=== PATIENT | female | born 1950 | race Caucasian/White ===

== ENCOUNTER 2017-01-11 21:37 | Emergency (ER) | payer OTHER ==
[~2017-01-11] VITALS: Ht 157.5 cm; Wt 90.7 kg
[~2017-01-11 21:37] MED LIST: AMOXICILLIN500 MG PO; HYDROCHLOROTHIA25 MG PO; LISINOPRIL-HCT1 EAC1 PO; METFORMIN HCL500 MG PO; PRAVASTATIN SOD20 MG PO; SF 5000 PLUS51 GM DT
[2017-01-11] MEDS ORDERED: AZITHROMYCIN250 MG PO (21:50)
[2017-01-11] MEDS ORDERED: LIPITOR40 MG PO (21:51)
[2017-01-11] MEDS ORDERED: CARVEDILOL25 MG PO (21:52)
[2017-01-11] MEDS ORDERED: SUDAFED 12-HOU120 MG PO (22:35)
[2017-01-11] MEDS ORDERED: AUGMENTIN 875-1 EACH PO (22:35)
== END 2017-01-11 22:48 | disposition home or self-care (01) ==
LOC: ED 21:37
DX: J01.90 Acute sinusitis, unspecified (principal); I10 Essential (primary) hypertension; E11.9 Type 2 diabetes mellitus without complications; E78.00 Pure hypercholesterolemia, unspecified; Z87.891 Personal history of nicotine dependence; Z88.8 Allergy status to other drugs, medicaments and biological substances; Z79.84 Long term (current) use of oral hypoglycemic drugs; Z79.2 Long term (current) use of antibiotics; Z79.899 Other long term (current) drug therapy
CPT/HCPCS: 99283

== ENCOUNTER 2020-07-09 08:45 | Day surgery (SDC) | payer MEDICARE ==
[~2020-07-09] VITALS: Ht 157.5 cm; Wt 96.0 kg
[~2020-07-09 08:45] MED LIST changes: +AUGMENTIN 875-1 EACH PO; +AZITHROMYCIN250 MG PO; +CARVEDILOL25 MG PO; +LIPITOR40 MG PO; +SUDAFED 12-HOU120 MG PO
--- NOTE | 2020-07-09 10:45 | NUR ---
07/09/20 1045 Sadia Ortiz 1042 PATIENT ARRIVES TO PACU AWAKE. DENIES PAIN OR NAUSEA. RESP EVEN AND UNLABORED, ROOM AIR SATS >92%.
--- NOTE | 2020-07-10 20:06 | OR ---
[facility] [address] [place], [place] [address] Signed DATE OF OPERATION: 07/09/2020 SURGEON: Kady Spencer MD PREOPERATIVE DIAGNOSES: 1. Positive FIT test (hemoccult-positive human specific test). 2. No prior history of colonoscopy. POSTOPERATIVE DIAGNOSIS: Polyps x3. PROCEDURES: Total colonoscopy to cecum with cold morcellation polypectomy x2 and cold snare polypectomy x1. ANESTHESIA: Intravenous sedation, fentanyl 100 mcg, and Versed 7 mg. INDICATION: This 69-year-old white woman is a patient Dr. Lala and underwent FIT testing, which was found to be positive. She has had no gross blood per rectum or other bleeding episodes in the past. She is admitted at this time to undergo colonoscopy. Notably, she has never had colonoscopy in the past. She has no family history of colon cancer and no symptoms otherwise. FINDINGS: The prep was adequate. Colonoscopy was undertaken to the cecum. She did have several diverticula of the sigmoid and she had an adenomatous polyp of the rectum and 2 small adenomatous polyps of the right side including superior cecum and proximal right colon. All were excised completely. DESCRIPTION OF PROCEDURE: The patient was brought to the endoscopy suite and placed in lateral decubitus position, given intravenous sedation to the point of slurred speech and nystagmus. Digital rectal examination was normal. Olympus video colonoscope was passed per rectum and manipulated throughout the colon. Just proximal to the cecum was a small sessile polyp. This was excised with cold morcellation technique. The scope was then advanced to the cecum. Irrigation was undertaken and another small polyp was noted in the distal cecum. This was excised with Electronically Signed By: KADY SPENCER MD 07/10/202005 PATIENT NAME: GRISELDA AMARAL OPERATIVE REPORT DATE OF : 54 REPORT #: [id number] PHYSICIAN: KADY SPENCER MD PCP: LEESA LALA MD REPORT IS CONFIDENTIAL AND NOT TO BE RELEASED WITHOUT AUTHORIZATION [facility] [address] [place] [id number] Signed cold morcellation technique as well. The scope was then withdrawn and examination throughout showed no sign of abnormality other than diverticular change of the sigmoid until retroflexed view of the rectum demonstrated an adenomatous appearing polyp. This was excised with cold snare polypectomy technique. The scope was withdrawn and removed and the patient was taken to recovery room in good condition. CONCLUDING DIAGNOSIS: Polyps x3. PLAN: Recommend repeat colonoscopy in 5 years sooner if symptoms should occur. She will return to the ongoing care of Dr. Lala. MD LATRICIA Alejandro/NANOL /[id number] cc: Leesa Lala MD Copies: ~ Electronically Signed By: KADY SPENCER MD 07/10/202005 PATIENT NAME: GRISELDA AMARAL OPERATIVE REPORT DATE OF : 54 REPORT #: [id number] PHYSICIAN: KADY SPENCER MD PCP: LEESA LALA MD REPORT IS CONFIDENTIAL AND NOT TO BE RELEASED WITHOUT AUTHORIZATION
--- NOTE | 2020-07-12 15:15 | PATH ---
[facility] [address] [place], [place] [address] Signed SPECIMEN(S): A ASCENDING POLYP SPECIMEN(S): B CECAL POLYP SPECIMEN(S): C RECTAL POLYP SPECIMEN SOURCE: A. ASCENDING POLYP B. CECAL POLYP C. RECTAL POLYP CLINICAL HISTORY: Screening colonoscopy with poss. biopsies. Post: Colon polyps x 3. MICROSCOPIC DESCRIPTION: Histologic sections of all submitted blocks are examined by light microscopy. These findings, together with the gross examination, support the pathologic diagnosis. FINAL PATHOLOGIC DIAGNOSIS: A. Ascending polyp: - Tubular adenoma (one fragment). B. Cecal polyp: - Tubular adenoma (one fragment). C. Rectal polyp: - Polypoid colonic mucosa with focal hypeplastic features (two fragments) JVR:[facility]:C2NR GROSS DESCRIPTION: Three specimens are received in three containers, labeled "RC." A. The specimen, labeled "RC, 1," and designated on the requisition "ascending polyp," is received in formalin and consists of one reardon soft tissue polypoid fragment that measures 0.3 cm in greatest dimension. The specimen is entirely submitted in cassette (A1). B. The specimen, labeled "RC, 2," and designated on the requisition "cecal polyp," is received in formalin and consists of one reardon soft tissue polypoid fragment that measures 0.5 cm in greatest dimension. The specimen is entirely submitted in cassette (B1). C. The specimen, labeled "RC, 3," and designated on the requisition "rectal polyp," is received in formalin and consists of two reardon soft tissue polypoid fragments that measure 0.3 cm in greatest dimension. The specimen is entirely submitted in cassette (C1). AT (under the direct supervision of a pathologist) PATIENT NAME: GRISELDA AMARAL PATHOLOGY DATE OF : 54 REPORT #: [id number] PHYSICIAN: [facility] PCP: ENEDELIA ROBERTS MD REPORT IS CONFIDENTIAL AND NOT TO BE RELEASED WITHOUT AUTHORIZATION [facility] [address] [place], [place] [address], [place] [address] Signed The Gross Description was prepared using a voice recognition system. The report was reviewed for accuracy; however, sound-alike word errors, addition and/or deletions may occur. If there is any question about this report, please contact Client Services. PERFORMING LABORATORY: The technical component was performed by [employer], [address] [place] [id number] (Speech Language Pathologist Assistant: Jeanette Reynolds MD; CLIA# [id number]). Professional interpretation was performed by [employer] [address]. Diagnostician: Jonny Case MD Pathologist Electronically Signed 07/12/2020 Copies: ~ PATIENT NAME: GRISELDA AMARAL PATHOLOGY DATE OF : 54 REPORT #: [id number] PHYSICIAN: [facility] PCP: ENEDELIA ROBERTS MD REPORT IS CONFIDENTIAL AND NOT TO BE RELEASED WITHOUT AUTHORIZATION
== END 2020-07-09 11:15 | disposition home or self-care (01) ==
LOC: OPS 08:45 → DS 08:50 → OPS 10:00 → DS 10:30 → OPS 11:15
PROVIDERS: ATTEND Surgery
PROC: 0DBH8ZZ Excision of Cecum, Via Natural or Artificial Opening Endoscopic (ICD-10-PCS; 2020-07-09)
PROC: 0DBH8ZZ Excision of Cecum, Via Natural or Artificial Opening Endoscopic (ICD-10-PCS; principal; 2020-07-09 10:00)
DX: Z12.11 Encounter for screening for malignant neoplasm of colon (principal); D12.2 Benign neoplasm of ascending colon; D12.0 Benign neoplasm of cecum; D12.8 Benign neoplasm of rectum; K57.30 Diverticulosis of large intestine without perforation or abscess without bleeding
CPT/HCPCS: 99153; G0500; J2250; J3010; J7121

== ENCOUNTER 2022-01-24 07:51 | Day surgery (SDC) | payer MEDICARE ==
[~2022-01-24] VITALS: Ht 157.5 cm; Wt 90.9 kg
[~2022-01-24 07:51] MED LIST changes: +D3 + K2 DOTS 11 EACH PO; +FENOFIBRATE160 MG PO
--- NOTE | 2022-01-24 12:44 | OR ---
[facility] [address] [facility] [place], [place] [address] Signed DATE OF OPERATION: 01/24/2022 SURGEON: Petr Canela MD LOCATION: [facility] [place] [facility] Outpatient Surgery PREOPERATIVE DIAGNOSIS: Left ear eustachian tube dysfunction. POSTOPERATIVE DIAGNOSIS: Left ear eustachian tube dysfunction. PROCEDURE: Left myringotomy and ventilation tube insertion. ANESTHESIA: General LMA, Robert DOSHI. HISTORY: Griselda is a 71-year-old lady with several months of left ear plugging, pressure problems, popping, discomfort. Exam in the office had shown essentially clear eardrums. within normal limits. She is taken to the operating room for the above-mentioned procedures. OPERATIVE PROCEDURE AND FINDINGS: After informed consent, the patient was taken to the operating room, placed in the supine position where general LMA anesthesia was induced. The patient and procedure were verified. The patient was repositioned. Left ear was examined with the operating microscope. The eardrum was clear. No middle ear effusion. Anterior inferior radial myringotomy was made. No middle ear effusion. Loyola tube placed. Cipro ophthalmic drops applied to the ear canal, cotton ball to the meatus. The patient tolerated the procedure well, was awakened, extubated, transported to recovery room in good condition. No complications. BLOOD LOSS: Minimal. SPECIMEN: No specimen Electronically Signed By: PETR CANELA MD 01/24/22 1244 PATIENT NAME: GRISELDA AMARAL OPERATIVE REPORT DATE OF : 54 REPORT #: [id number] PHYSICIAN: PETR CANELA MD PCP: ENEDELIA ROBERTS MD REPORT IS CONFIDENTIAL AND NOT TO BE RELEASED WITHOUT AUTHORIZATION [address] [place], [place] [address] Signed DRAINS: No drains Petr Canela MD /MODL /[id number] Copies: ~ Electronically Signed By: PETR CANELA MD 01/24/22 1244 PATIENT NAME: GRISELDA AMARAL OPERATIVE REPORT DATE OF : 54 REPORT #: [id number] PHYSICIAN: PETR CANELA MD PCP: ENEDELIA ROBERTS MD REPORT IS CONFIDENTIAL AND NOT TO BE RELEASED WITHOUT AUTHORIZATION
== END 2022-01-24 11:15 | disposition home or self-care (01) ==
LOC: OPS 07:51 → DS 07:51 → OPS 09:30 → DS 09:30 → OPS 11:15
PROVIDERS: ATTEND Otolaryngology
PROC: 099670Z Drainage of Left Middle Ear with Drainage Device, Via Natural or Artificial Opening (ICD-10-PCS; principal; 2022-01-24 09:30)
DX: H69.92 Unspecified Eustachian tube disorder, left ear (principal); H91.92 Unspecified hearing loss, left ear; Z20.822 Contact with and (suspected) exposure to COVID-19
CPT/HCPCS: 00126; J1100; J1885; J2250; J2405; J2704; J2765; J3010; J7121

== ENCOUNTER 2023-04-22 08:28 | Emergency (ER) | payer MEDICARE ==
[~2023-04-22] VITALS: Ht 157.5 cm; Wt 86.2 kg
[2023-04-22] MEDS ORDERED: JARDIANCE10 MG PO (08:46)
[2023-04-22] MEDS ORDERED: FENOFIBRATE160 MG PO (08:47)
[2023-04-22] MEDS ORDERED: B12 ACTIVE1000 MCG PO (08:47)
[2023-04-22] MEDS ORDERED: ST. JOSEPH ASPI81 MG PO (08:48)
[2023-04-22] MEDS ORDERED: NORVASC5 MG PO (09:16)
[2023-04-22] MEDS ORDERED: HYDROCHLOROTHIA25 MG PO (09:16)
[2023-04-22 09:57] VITALS: BP 119/55
== END 2023-04-22 09:58 | disposition home or self-care (01) ==
LOC: ED 08:28
DX: T78.3XXA Angioneurotic edema, initial encounter (principal); T46.4X5A Adverse effect of angiotensin-converting-enzyme inhibitors, initial encounter; I10 Essential (primary) hypertension; E11.9 Type 2 diabetes mellitus without complications; E78.00 Pure hypercholesterolemia, unspecified; Z87.891 Personal history of nicotine dependence; Z88.8 Allergy status to other drugs, medicaments and biological substances; Z79.84 Long term (current) use of oral hypoglycemic drugs; Z79.82 Long term (current) use of aspirin; Z79.899 Other long term (current) drug therapy
CPT/HCPCS: 99283; J8540

== ENCOUNTER 2024-09-18 19:07 | Inpatient (IN) | payer MEDICARE, OTHER ==
[~2024-09-18] VITALS: Ht 157.5 cm; Wt 93.8 kg
[~2024-09-18 19:07] MED LIST changes: +B12 ACTIVE1000 MCG PO; +JARDIANCE10 MG PO; +NORVASC5 MG PO; +ST. JOSEPH ASPI81 MG PO
[2024-09-18] MEDS ORDERED: JARDIANCE25 MG PO (19:28)
[2024-09-18 20:29] LABS: BASOPHILS 1.1 % (0-2); EOSINOPHILS 4.8 % (0-6); HEMATOCRIT 23.4 % (35.0-50.0); HEMOGLOBIN 7.7 g/dL (12.0-18.0); LYMPHOCYTES 17.7 % (24-44); MCH 30.8 (27-36); MCV 93.3 fl (81-99); NEUTROPHILS 66.4 % (39-80); PLATELET COUNT 488 K/uL (140-440); RBC 2.51 M/ul (4.3-5.7); RDW 14.5 (10.5-15.0)
[2024-09-18 20:42] LABS: BILIRUBIN, URINE NEGATIVE (negative); BLOOD/HGB, URINE NEGATIVE (Negative); KETONE, URINE NEGATIVE (Negative); LEUK ESTERASE, URINE TRACE (negative); NITRITE, URINE NEGATIVE (negative)
[2024-09-18 20:46] LABS: EPITHELIAL CELLS, URINE SQUAMOUS 1+ /lpf (0-1+); RED BLOOD CELLS, URINE 0-1 /hpf (0-5)
[2024-09-18 20:47] LABS: BACTERIA, URINE RARE /hpf (negative); CASTS, URINE NONE SEEN \\lpf; COLLECTION TYPE, URINE CLEAN CATCH; CRYSTALS, URINE NONE SEEN (0-1+); REFLEX CULTURE, URINE Yes (No); WHITE BLOOD CELLS, URINE 21-40 /HPF (0-5)
[2024-09-18 20:55] LABS: ALBUMIN 3.1 g/dL (3.4-5.0); ALBUMIN/GLOBULIN RATIO 0.91 (1.1-2.4); ANION GAP 11.5 (7-21); BILIRUBIN, TOTAL 0.3 mg/dL (0.2-1.0); BUN/CREATININE RATIO 27.84 (6.0-28.6); CALCIUM 8.5 mg/dL (8.5-10.1); CREATININE, SERUM 0.79 mg/dL (0.55-1.02); MAGNESIUM 1.6 mg/dL (1.8-2.4); POTASSIUM 4.5 mmol/L (3.5-5.1); PROTEIN, TOTAL 6.5 g/dL (6.4-8.2); TSH, 3RD GENERATION 1.354 uIU/mL (0.358-3.740)
[2024-09-18] MEDS ORDERED: MAGNESIUM OXIDE 400 MG TABLET PO ONE (21:15)
[2024-09-18] MEDS ORDERED: PANTOPRAZOLE SODIUM 40 MG/10 ML VIAL IV ONE (21:30)
[2024-09-18 21:58] VITALS: BP 137/61
[2024-09-18 22:00] VITALS: BP 139/58
--- NOTE | 2024-09-18 22:00 | NUR ---
PATIENT ARRIVED TO THE UNIT VIA STRETCHER. PATIENT ABLE TO TRANSFER WITH MINIMAL ASSIST TO THE BED. PATIENT DENIED FEELING SOB WITH THIS ACTIVITY. VS STABLE. TOLERATING ROOM AIR. LUNG SOUNDS CLEAR. ABD SOFT AND NONTENDER. BOWEL SOUNDS ACTIVE. IV SITE WNL; FLUSHED EASILY. SKIN GROSSLY INTACT. 1+ EDEMA NOTED IN JENNIFER LOWER EXTREMITIES. PATIENT IS AAOX4. DENIED PAIN OR GI UPSET. DISCUSSED PLAN OF CARE AND ORIENTED TO ROOM.
[2024-09-18] MEDS ORDERED: CALCIUM + D3 E1 EACH PO (22:03)
[2024-09-18] MEDS ORDERED: CLOPIDOGREL75 MG PO (22:03)
[2024-09-18 22:06] LABS: ABO O; RH POSITIVE
[2024-09-18 22:16] LABS: ABO O; ANTIBODY SCREEN NEGATIVE; RH POSITIVE
[2024-09-18 22:17] LABS: IS CROSSMATCH COMPATIBLE
--- NOTE | 2024-09-18 22:30 | NUR ---
VERIFIED BLOOD PRODUCT ADMINISTERATION ORDERS WITH . PLAN FOR 1 UNIT INFUSION; RECHECK LABS AT 0200. NPO AFTER MIDNIGHT AND IV FLUIDS AT THAT TIME. SEE ORDERS.
[2024-09-18 23:00] VITALS: BP 134/59
[2024-09-18] MEDS ORDERED: MELATONIN 3 MG TAB PO ONE (23:00)
--- NOTE | 2024-09-18 23:00 | NUR ---
FIRST UNIT PRBC STARTED; REVIEWED REACTION SIGNS AND SYMPTOMS WITH PATIENT. VS STABLE. NO REACTIONS AFTER FIRST 15 MINS. CONTINUED INFUSION AT 150 ML/HR. PATIENT PROVIDED WATER AT THIS TIME AND MELATONIN PER REQUEST. CALL LIGHT IN REACH. PATIENT AGREES TO CALL FOR ANY NEEDS, INCLUDING GETTING OUT OF BED.
[2024-09-19] VITALS (8 sets, daily range): BP systolic 114–153; BP diastolic 53–74
[2024-09-19] MEDS ORDERED: LACTATED RINGER'S 1,000 ML IV SCH
--- NOTE | 2024-09-19 00:43 | NUR ---
PATIENT UP TO THE BSC TO VOID. PATIENT TOLERATES WELL. DENIED FEELING SOB. PATIENT DOES REPORT DIFFICULTY SLEEPING, STATES "THIS IS HOW I AM WHEN I'M IN THE HOSPITAL". DENIED CONCERNS. IV SITE WNL; PRBC INFUSING PER ORDER. VS STABLE. CALL LIGHT IN REACH.
--- NOTE | 2024-09-19 02:00 | NUR ---
LAB IN FOR REPEAT CBC. BLOOD PRODUCTS FINISHED 129. VS STABLE. NO SIGNS OF REACTION. IV FLUIDS STARTED PER ORDER. IV SITE WNL.
[2024-09-19 02:14] LABS: BASOPHILS 1.3 % (0-2); EOSINOPHILS 5.9 % (0-6); HEMATOCRIT 25.5 % (35.0-50.0); HEMOGLOBIN 8.7 g/dL (12.0-18.0); LYMPHOCYTES 19.4 % (24-44); MCH 31.1 (27-36); MCHC 34.1 g/dl (30-36); MCV 91.2 fl (81-99); MONOCYTES 10.3 % (0-12); NEUTROPHILS 63.1 % (39-80); PLATELET COUNT 436 K/uL (140-440); RBC 2.79 M/ul (4.3-5.7); RDW 14.4 (10.5-15.0)
--- NOTE | 2024-09-19 03:12 | NUR ---
UPDATED ON PATIENT REPEAT LABS AND CURRENT VS.
--- NOTE | 2024-09-19 05:00 | NUR ---
PATIENT RESTING IN BED. DENIES ANY NEEDS OR CONCERNS. VS STABLE. IV FLUIDS PER ORDER. SITE WNL. PATIENT DENIED PAIN, SOB, OR GI UPSET. CALL LIGHT IN REACH.
[2024-09-19 06:06] LABS: BASOPHILS 1.1 % (0-2); EOSINOPHILS 6.4 % (0-6); HEMATOCRIT 26.6 % (35.0-50.0); HEMOGLOBIN 8.9 g/dL (12.0-18.0); LYMPHOCYTES 19.1 % (24-44); MCH 30.8 (27-36); MCHC 33.6 g/dl (30-36); MCV 91.5 fl (81-99); NEUTROPHILS 63.4 % (39-80); PLATELET COUNT 450 K/uL (140-440); RBC 2.91 M/ul (4.3-5.7)
--- NOTE | 2024-09-19 06:08 | NUR ---
LAB IN FOR MORNING DRAW. PATIENT PROVIDED TV REMOTE. NO OTHER NEEDS AT THIS TIME. CALL LIGHT IN REACH. IV SITE WNL.
[2024-09-19 06:21] LABS: ALBUMIN 3.1 g/dL (3.4-5.0); ANION GAP 12.8 (7-21); BILIRUBIN, TOTAL 0.7 mg/dL (0.2-1.0); BUN/CREATININE RATIO 22.22 (6.0-28.6); CALCIUM 8.6 mg/dL (8.5-10.1); CREATININE, SERUM 0.81 mg/dL (0.55-1.02); MAGNESIUM 1.7 mg/dL (1.8-2.4); POTASSIUM 3.8 mmol/L (3.5-5.1); PROTEIN, TOTAL 6.2 g/dL (6.4-8.2)
--- NOTE | 2024-09-19 08:00 | NUR ---
PT USES CALL LIGHT TO REQUEST ASSISTANCE UP TO BSC. PT STEADY ON FEET, AWARE OF LINES/CORDS. PT PREFORMS OWN RENEE CARE POST VOID. MEDIUM SIZED FORMED STOOL NOTED, BROWN. PT REPORTS SOME DIZZINESS WITH STANDING POST VOID, RESOLVES UPON REST IN BED. REPORTS "SLIGHT" HEADACHE. VS STABLE. CALL LIGHT IN REACH.
--- NOTE | 2024-09-19 08:27 | EKG ---
[facility] [address] [facility] [place] [address] Signed Normal sinus rhythm Minimal voltage criteria for LVH, may be normal variant ( R in aVL ) Borderline ECG When compared with ECG of 23-JAN-2022 07:32, ST no longer elevated in Lateral leads Confirmed by Tyshawn Hudson MD () on 09/19/2024 8:27:01 AM Electronically Signed By: TYSHAWN HUDSON MD 09/19/24 0827 PATIENT NAME: GRISELDA AMARAL Electrocardiogram DATE OF : 54 PHYSICIAN: TYSHAWN HUDSON MD REPORT #: [id number] REPORT IS CONFIDENTIAL AND NOT TO BE RELEASED WITHOUT AUTHORIZATION
[2024-09-19] MEDS ORDERED: GLUCAGON,HUMAN RECOMBINANT 1 MG/ML VIAL SUB-Q PRN (09:00)
[2024-09-19] MEDS ORDERED: IBLOOD GLUCOSE TEST STRIP 1 EA TEST XX PRN (09:00)
[2024-09-19] MEDS ORDERED: MAGNESIUM SULFATE 2 GM/50 ML BAG IV ONE (09:00)
[2024-09-19] MEDS ORDERED: DEXTROSE 5% 1,000 ML IV PRN (09:00)
[2024-09-19] MEDS ORDERED: DEXTROSE 50% 50 ML SYR IV PRN ×2 (09:00)
[2024-09-19] MEDS ORDERED: ondansetron HCL 4 MG/2 ML VIAL IV PRN (09:00)
[2024-09-19] MEDS ORDERED: PANTOPRAZOLE SODIUM 40 MG/10 ML VIAL IV SCH (09:08)
--- NOTE | 2024-09-19 09:21 | NUR ---
UR CLINICAL REVIEW: 2MN MANPREET, MEETS INPT FOR ANEMIA/GI BLEED SYMPTOMATIC ANEMIA WITH HGB 7.7 REQUIRING TRANSFUSION, LIKELY GI BLEED WITH POSITIVE GUAIAC. MEDICARE INPT 09/19/2024 @ 0858 ORDER MATCHES REG NO AUTH REQUIRED PER MEDICARE RULES PLAN TO DC TO HOME WHEN MEDICALLY STABLE.
--- NOTE | 2024-09-19 09:58 | NUR ---
[facility] NOT AVAILABLE FOR VISIT. PROVIDED PRAYER.
[2024-09-19] MEDS ORDERED: ATORVASTATIN CA80 MG PO (10:10)
--- NOTE | 2024-09-19 10:18 | NUR ---
VISITED DURING SPIRITUAL CARE ROUNDS. PT IN OVERALL GOOD SPIRITS, NO IMMEDIATE NEEDS. BOW MAKER PROVIDED SUPPORTIVE PRESENCE, HOSPITALITY, PRAYER. PT EXPRESSED GRATITUDE.
--- NOTE | 2024-09-19 10:26 | NUR ---
INTO SEE PATIENT. PERSONAL HEALTH INFORMATION REVIEWED. PATIENT LIVES IN AN APARTMENT WITH SISTER. 2 STEPS TO GET INTO. STATES THEY HAVE BEEN A BIT HARDER BECAUSE OF SHORTNESS OF BREATH. DENIES ANY DME. DRIVES. DENIES DIFFCULTY PAYING UTLITIES OR OBATAINING FOOD. NO FUTHER CM NEEDS OR QUESTIONS.
--- NOTE | 2024-09-19 10:33 | NUR ---
MED REC COMPLETE
--- NOTE | 2024-09-19 11:32 | NUR ---
PT ASSITED UP TO BSC TO VOID. REPORTS DIZZINESS WITH STANDING, HR ELEVATED TO 90'S, RESOLVES WITH RETURN TO BED. DENIES SOB. DENIES PAIN IN ABD, ONLY HEADACHE WHICH SHE DENIES NEEDING PAIN MEDICATION FOR RIGHT NOW. ICE AND HEAT PACK OFFERED. IV SITE PATENT. PT IN GOOD SPIRITS WATCHING TV. CALL LIGHT IN REACH.
[2024-09-19] MEDS ORDERED: PHARMACY RENAL DOSE ADJUSTMENT 1 DOSE MISC PO SCH (12:00)
--- NOTE | 2024-09-19 13:09 | NUR ---
PT ASSISTED UP TO CHAIR - RESTLESS AND ANXIOUS TO SEE SURGEON. OTHERWISE PT DENIES NEESD, CALL LIGHT IN REACH.
[2024-09-19] MEDS ORDERED: Insulin Regular, Human 100 UNIT/ML ML SUB-Q SCH (14:00)
[2024-09-19] MEDS ORDERED: IBLOOD GLUCOSE TEST STRIP 1 EA TEST VI SCH (14:00)
--- NOTE | 2024-09-19 14:20 | NUR ---
PT ASSISTED WITH LINE/CORD MANAGMENT BACK TO BED. PM ASSESSEMENT UNCHANGED. PT DENIES ABD TENDERNESS, DENIES FEELING SOB, RR CONSISTENTLY ELEVATED IN 20'S WITH REST AND AMBULATION, PT DOESNT STATE THIS FEELS DIFFERENT FOR HER NORMAL. FINE CRACKLES IN BASES PERSIST. PT AWAITING SURGEON CONSULT FOR FURTHER PLAN.
--- NOTE | 2024-09-19 15:43 | NUR ---
RN IN ROOM TO ROUND WITH DR. SPENCER. PLAN OF CARE TO PREPARE FOR UPPER AND LOWER SCOPE DISCUSSED, ALL QUESTIONS ANSWERED.
[2024-09-19] MEDS ORDERED: POLYETHYLENE GLYCOL 3350 BOTTLE PO ONE (16:00)
--- NOTE | 2024-09-19 17:37 | NUR ---
PT COMPLETED BOTTLE 1 OF 2 BOWEL PREP WITHOUT DIFFICULTY OR COMPLAINTS. CHICKEN BROTH PROVIDED PER REQUEST.
--- NOTE | 2024-09-19 18:19 | NUR ---
PT USES CALL LIGHT TO REPORT NEEDING UP TO BATHROOM TO VOID. PT STEADY ON FEET, DOES ENDORSE MILD DIZZINESS WHEN STANDING. DARK BOWEL MOVEMENT NOTED - NO BALA BLOOD. PT BACK TO BED WITH CALL LIGHT IN REACH. EDUCATION PROVIDED ON CALLING BEFORE AMBULATING R/T HYPOTENSION/FALL RISK. STATES UNDERSTANDING.
--- NOTE | 2024-09-19 20:54 | NUR ---
REPORT AT CCU NURSES STATION TO LUMA HARRISON MED/SURG. PATIENT ALERT AND ORIENTED AT BEDSIDE.
--- NOTE | 2024-09-19 21:13 | NUR ---
RECEIVED REPORT FROM CCU AND TRANSFERRED PT TO ROOM 119 WITH BACKSHOE PERSON. VITALS, ASSESSMENT. PT TAKING BOWEL PREP FOR COLONOSCOPY/ENDOSCOPY TOMORROW. INSTRUCTED PT TO CALL WHEN NEEDING TO GET OTU OF BED D/T DIZZINESS, PT AGREES WITH PLAN. BED ALARM ACTIVE, CALL LIGHT IN REACH, NO OTHER NEEDS PRESENTLY
[2024-09-19 22:06] LABS: BASOPHILS 0.6 % (0-2); EOSINOPHILS 4.8 % (0-6); HEMATOCRIT 29.8 % (35.0-50.0); LYMPHOCYTES 16.3 % (24-44); MCH 30.6 (27-36); MCHC 33.5 g/dl (30-36); MCV 91.3 fl (81-99); MONOCYTES 8.6 % (0-12); NEUTROPHILS 69.7 % (39-80); PLATELET COUNT 511 K/uL (140-440); RBC 3.26 M/ul (4.3-5.7); RDW 14.9 (10.5-15.0)
--- NOTE | 2024-09-19 22:55 | NUR ---
EVENING MEDS, ASSISTED TO BEDSIDE COMMODE. CALL LIGHT IN REACH
--- NOTE | 2024-09-19 23:22 | NUR ---
ASSISTED TO COMMODE AND TO BED. DENIES OTHER NEEDS, CALL LIGHT INREACH
[2024-09-20 01:50] VITALS: BP 157/63
[2024-09-20 01:52] VITALS: BP 157/63
--- NOTE | 2024-09-20 01:52 | NUR ---
INTERIOR DESIGN PRINCIPAL OBTAINED VITALS AND I&O. PT STATES NO NEEDS AT THIS TIME. CALL LIGHT WITHIN REACH.
--- NOTE | 2024-09-20 02:24 | NUR ---
RESPONDED TO BEEPING IV, REINFORCED LINE WITH TAE. TOOK BG, IN RANGE. NO OTHER NEEDS PRESENTL, CALL LIGHT IN REACH
--- NOTE | 2024-09-20 04:12 | NUR ---
PT RESTING IN BED WITH EYES CLOSED, RISE AND FALL OF CHEST OBSERVED. CALL LIGHT IN REACH
[2024-09-20 05:18] LABS: BASOPHILS 0.9 % (0-2); EOSINOPHILS 5.7 % (0-6); HEMATOCRIT 28.3 % (35.0-50.0); HEMOGLOBIN 9.4 g/dL (12.0-18.0); LYMPHOCYTES 16.4 % (24-44); MCH 30.5 (27-36); MCHC 33.3 g/dl (30-36); MCV 91.4 fl (81-99); MONOCYTES 8.7 % (0-12); NEUTROPHILS 68.3 % (39-80); PLATELET COUNT 478 K/uL (140-440); RDW 14.9 (10.5-15.0)
[2024-09-20 05:34] LABS: ALBUMIN/GLOBULIN RATIO 0.86 (1.1-2.4); ANION GAP 11.6 (7-21); BILIRUBIN, TOTAL 0.6 mg/dL (0.2-1.0); BUN/CREATININE RATIO 19.04 (6.0-28.6); CALCIUM 8.6 mg/dL (8.5-10.1); CREATININE, SERUM 0.63 mg/dL (0.55-1.02); MAGNESIUM 1.5 mg/dL (1.8-2.4); PHOSPHORUS, INORGANIC 3.7 mg/dL (2.5-4.9); POTASSIUM 3.6 mmol/L (3.5-5.1); PROTEIN, TOTAL 6.5 g/dL (6.4-8.2)
[2024-09-20] MEDS ORDERED: diphenhydrAMINE HCL 50 MG/ML VIAL IV ONE ×2 (06:00→15:45)
[2024-09-20 06:32] VITALS: BP 149/71
--- NOTE | 2024-09-20 06:44 | NUR ---
ENTERED ROOM D/T BEEPING IV, PT REPORTS L LIPS/FACE SWOLLEN, DOES APPEAR MILD SWELLING THOUGH WORSENS OVER TIME. GIVEN ICE PACK, NOTIFIED MD. SEE NEW ORDER FOR BENADRYL. NO ITCHING/PAIN/NUMBNESS/SOB
--- NOTE | 2024-09-20 07:19 | NUR ---
RECIEVED BEDSIDE REPORT FROM CHRISTY GE. PT IS AWAKE, IVF RUNNING AT 75 PER ORDER. NPO SINCE MIDNIGHT IN PREP FOR EGD AND SCOPE TODAY, UNKNOWN TIME. ICE TO LOWER LEFT FACE FOR MINOR SWELLING. NO NEEDS AT THIS TIME.
[2024-09-20] MEDS ORDERED: MAGNESIUM SULFATE 2 GM/50 ML BAG IV SCH (08:00)
--- NOTE | 2024-09-20 08:38 | NUR ---
PT STILL HAS MINOR SWELLING ON THE LEFT SIDE OF HER MOUTH. SHE REPORTS NO ITCHING, NO WHEEZING, NO OTHER CONCERNS. REQUESTED AN ICE PACK FOR THE SWELLING. REPORTED ONE BOWEL MOVEMENT. EDUCATION PROVIDED ON ELECTRYOLTE REPLACEMENT. DOSE 1 OF 2 OF MAG IS RUNNING.
[2024-09-20] MEDS ORDERED: diphenhydrAMINE 2% CREAM TUBE TOP PRN (09:15)
--- NOTE | 2024-09-20 10:18 | NUR ---
PT IS SITTING IN BED, NO DISTRESS. SWELLING IN FACE HAS RECEEDED. NO NEEDS AT THIS TIME, JUST WAITING FOR WORD ON HER PROCEDURES.
[2024-09-20 10:42] VITALS: BP 141/113
--- NOTE | 2024-09-20 10:47 | NUR ---
PATIENT IS IN HER BED AT THIS TIME, [employer] ARCHITECT CHARTED VITALS AND OUTPUT, CALL LIGHT WITH IN REACH AND NOTHING ELSE NEEDED AT THIS TIME.
--- NOTE | 2024-09-20 13:09 | CONS ---
[facility] [address] [place], [place] [address] Signed DATE OF CONSULTATION: 09/19/2024 REQUESTING PHYSICIAN: Dr. Childs. PROBLEM: Anemia, heme-positive stool. HISTORY OF PRESENT ILLNESS: This 74-year-old white woman is well known to me from the past having undergone colonoscopy in 2021 at which time, she was found to have three polyps. She was asymptomatic at that time. The patient presented to the emergency room on this occasion and evaluated by Dr. Talbot at 7:30 p.m. yesterday for dyspnea on exertion for the past several days. She was found to be anemic with a hematocrit of only 23.4, normal platelet count of 488 and a white count of 6.5. There were no other findings on evaluation including chest x-ray, urinalysis, Chem profile and so forth that would account for her issues of shortness of breath and dyspnea on exertion. She was transfused at least 1 unit of packed red cells, which has improved her quite a bit. She was found to have heme-positive stool on guaiac testing in the emergency room. Request is made for further evaluation to assess for a source of anemia. The patient denies any prior family history of colon cancer or other similar problems. She did undergo coronary stenting in the past two years for which a report is noted from July 18, 2024 to July 21, 2024. She was recommended and she has been taking dual anti-platelet therapy with aspirin and Plavix, recommending between 6 and 12 months of therapy. The patient is a former smoker, but does not smoke now. Does not use alcohol or any illicit drugs. PAST SURGICAL HISTORY: Includes carpal tunnel release on the right side, coronary artery stenting in July of 2024, and of course colonoscopy that I performed in the past. CURRENT MEDICINES: Includes: 1. Jardiance. 2. Calcium supplement. 3. Clopidogrel. 4. Lipitor. Electronically Signed By: KADY SPENCER MD 09/20/24 1309 PATIENT NAME: GRISELDA AMARAL CONSULTATION DATE OF : 54 REPORT #: [id number] PHYSICIAN: KADY SPENCER MD PCP: LEESA LALA MD REPORT IS CONFIDENTIAL AND NOT TO BE RELEASED WITHOUT AUTHORIZATION [facility] [address] [place] [id number] Signed 5. Carvedilol. 6. Fenofibrate. 7. Vitamin B12. 8. Aspirin. 9. Metformin. 10. Vitamin D3. REVIEW OF SYSTEMS: She denies any chest pain though, she has had shortness of breath up until today. She has had no hematemesis or gross blood per rectum, though she has had heme-positive stool identified. PHYSICAL EXAMINATION: GENERAL: A very pleasant white woman who looks to be in no distress at this time. VITAL SIGNS: Current temperature is 98.4, pulse 94, blood pressure 153/54. HEENT: Trachea is midline. CHEST: Shows normal respiratory excursion. ABDOMEN: Obese, but soft. There is no focal mass or tenderness. EXTREMITIES: Show no clubbing, cyanosis, or edema. LABORATORY DATA: 1. Today show a white count of 5.8, hematocrit 26.6, platelets 450,000. Chem profile shows normal electrolytes at this time. Glucose 112, magnesium 1.7. Liver enzymes normal. TSH at admission 1.354 (normal). 2. Albumin-globulin 1.0. Total protein is 6.2. 3. Chest x-ray is reviewed, which shows no specific abnormality at this time. ASSESSMENT: The patient has anemia of unknown source. She has had heme-positive stool and therefore, there clearly is enteric blood loss. I would recommend upper endoscopy and colonoscopy be undertaken; she did have polyps in the colon in the past. The risk of bleeding, infection, perforation, and other unforeseen complications was reviewed with her. So as to provide for endoscopic evaluation, she should have a bowel prep and we will initiate a MiraLAX prep today. The risk of bleeding, infection, and perforation related to colonoscopy and upper endoscopy were reviewed with her, she understands and wished to proceed. MD LATRICIA Alejandro/CORDELIA Electronically Signed By: KADY SPENCER MD 09/20/24 1309 PATIENT NAME: GRISELDA AMARAL CONSULTATION DATE OF : 54 REPORT #: [id number] PHYSICIAN: KADY SPENCER MD PCP: LEESA LALA MD REPORT IS CONFIDENTIAL AND NOT TO BE RELEASED WITHOUT AUTHORIZATION [facility] [address] [facility] [place], [place] [address] Signed /[id number] cc: Leesa Lala MD [facility] Cop[place]: ~ Electronically Signed By: KADY SPENCER MD 09/20/24 1309 PATIENT NAME: GRISELDA AMARAL CONSULTATION DATE OF : 54 REPORT #: [id number] PHYSICIAN: KADY SPENCER MD PCP: LEESA LALA MD REPORT IS CONFIDENTIAL AND NOT TO BE RELEASED WITHOUT AUTHORIZATION
--- NOTE | 2024-09-20 13:12 | NUR ---
PT IS OFF THE FLOOR FOR PROCEDURES. REPORT GIVEN TO CHRISTY HUSSEIN.
[2024-09-20] MEDS ORDERED: LIDOCAINE HCL 2% 5 ML SDV ONE (13:13)
[2024-09-20] MEDS ORDERED: propofoL 200 MG/20 ML VIAL ONE (13:13)
--- NOTE | 2024-09-20 13:13 | NUR ---
PT REPORTED THAT SHE THINKS HER LIPS ARE STILL SWOLLEN. RN SEES NO CHANGE IN LOWER LIP FROM THIS MORNING AND UPPER LIPS LOOKS LESS SWOLLEN. ADVISED PLOW HOLDER OF THE REACTION AND TREATMENT.
[2024-09-20] MEDS ORDERED: fentaNYL citrate 100 MCG/2 ML VIAL ONE (13:24)
[2024-09-20] MEDS ORDERED: KETAMINE in NS 50 MG/5 ML SYR ONE (13:24)
[2024-09-20 14:03] LABS: IRON BINDING CAPACITY TOTAL 468 ug/dL (240-450); IRON,SERUM OR PLASMA 54 ug/dL (28-170); TRANSFERRIN SATURATION 12 %sat (20-50)
--- NOTE | 2024-09-20 14:08 | NUR ---
09/20/24 1408 Katie Patel 1401: PT ARRIVES TO PACU COMPLETELY AWAKE. SHE HAS NO COMPLAINTS OF PAIN. SHE IS AMAZED AT HOW QUICKLY SHE WAS DONE AND THAT DR. SPENCER HELD HER HAND THE WHOLE TIME. MARYLOU 1405: PT IS RESTING IN BED WITH A CONTENT LOOK ON HER FACE. SHE IS DENYING ANY PAIN OR NAUSEA AT THIS TIME.
[2024-09-20] MEDS ORDERED: CLOPIDOGREL BISULFATE 75 MG TAB PO SCH (14:19)
[2024-09-20 14:25] VITALS: BP 169/64
--- NOTE | 2024-09-20 15:15 | NUR ---
VERBAL REPORT RECEIVED FROM CHRISTY OLSEN. PT RESTS IN BED AWAKE AND ALERT, WATCHES TV, CALL LIGHT IN REACH.
--- NOTE | 2024-09-20 15:35 | NUR ---
BENADRYL CREAM RECIEVED FOR LIP AND FACIAL SWELLING.
[2024-09-20] MEDS ORDERED: OMEPRAZOLE20 MG PO (15:57)
[2024-09-20 16:20] VITALS: BP 159/99
--- NOTE | 2024-09-20 16:30 | NUR ---
SWELLING TO LIPS AND FACE APPEARS TO HAVE IMPROVED BY A SMALL AMOUNT. PT TO DISCHARGE. IV REMOVED, TIP INTACT, GAUZE AND COBAN DRESSING APPLIED TO SITE, PT TOLERATED WELL. PT DRESSES SELF, TOLERATES ACTIVITY WELL. VSS. DISCUSSED DISCHARGE INSTRUCTIONS WITH PT, PT VERBALIZES UNDERSTANDING. LEAVES UNIT VIA WHEELCHAIR WITH HER BELONGINGS IN SAH BAG, ESCORTED TO PRIVATE CAR DRIVEN BY SISTER.
[2024-09-20] MEDS ORDERED: Insulin Regular, Human 100 UNIT/ML ML SUB-Q SCH (17:00)
[2024-09-20] MEDS ORDERED: IBLOOD GLUCOSE TEST STRIP 1 EA TEST VI SCH (17:00)
[2024-09-21] MEDS ORDERED: ASPIRIN 81 MG TABEC PO SCH (09:00)
--- NOTE | 2024-09-22 07:49 | NUR ---
UR CLINICAL REVIEW: 2 MN FOR VERSALUS- PER CLINICAL PRACTITIONER MEET INPT FOR ANEMIA/FACIAL SWELLING WITH NEED FOR FURTHER MONITORING MEDICARE INPT 09/19/24 @ 0858 ORDER MATCHES REG PATIENT ELECTED DISCHARGE FROM HOSPITAL POST EGD
--- NOTE | 2024-09-22 14:33 | OR ---
[facility] [address] [place], [place] [address] Signed DATE OF OPERATION: 09/20/2024 SURGEON: Kady Spencer MD PREOPERATIVE DIAGNOSES: 1. Anemia of uncertain etiology. 2. Antiplatelet therapy, Plavix related to prior coronary stenting. POSTOPERATIVE DIAGNOSES: 1. Normal upper endoscopy except for mild inflammation of duodenum; no ulcer or neoplasm. 2. Normal-appearing colon except for scattered diverticula of sigmoid and minimal inflammation of hepatic flexure. PROCEDURES: 1. Esophagogastroduodenoscopy with biopsy. 2. Total colonoscopy to cecum with biopsy of hepatic flexure. ANESTHESIA: Intravenous sedation propofol sedation; Jordan Cruz CRNA. INDICATION: This 74-year-old white woman is a patient Dr. Childs, was admitted to the hospital on 09/18/2024 for dyspnea on exertion for the preceding several days. She was found to be anemic with hematocrit of only 23.4, normal platelet count of 488 and white count of 6.5. She had no overt bleeding, though she was said to have heme-positive stool testing at least once. She has undergone colonoscopy by [facility] in 2021 where she was found to have three polyps. She has no family history of colon cancer or other similar problem. She underwent coronary stenting in the past two years ago and was recommended and has been taking dual anti-platelet therapy with aspirin and Plavix. She was admitted at this time to undergo upper endoscopy and colonoscopy but to better characterize the source of her anemia. Notably, she has been transfused at least 1 unit of packed cells and has a stable hematocrit of 28.5. She understands the risk of bleeding, infection, and perforation related to upper endoscopy and colonoscopy and wished to proceed. FINDINGS: Upper endoscopy was essentially normal. There was mild inflammation of the duodenum, but no ulcer, lesion to account for anemia. She did not have typical stigmata of celiac disease, through biopsies were obtained of the duodenum to assess for that. The flap valve was normal. The esophagus was perfectly normal. CLOtest was negative 20 minutes post procedure. Electronically Signed By: KADY SPENCER MD 09/22/24 1433 PATIENT NAME: GRISELDA AMARAL OPERATIVE REPORT DATE OF : 54 REPORT #: [id number] PHYSICIAN: KADY SPENCER MD PCP: ENEDELIA ROBERTS MD REPORT IS CONFIDENTIAL AND NOT TO BE RELEASED WITHOUT AUTHORIZATION [facility] [address] [place], [place] [address] Signed On colonoscopy, the prep was quite excellent. Complete colonoscopy was undertaken of the cecum with full intubation of the cecum. The appendiceal orifice was normal. Attempts were made to enter the ileum, but it was not possible though brief visualization was noted and showing no sign of abnormality. The remaining colon was essentially normal except for few scattered shallow diverticula of the sigmoid. DESCRIPTION OF PROCEDURE: The patient was brought to the endoscopy suite and placed in lateral decubitus position given intravenous sedation to the point of slurred speech and nystagmus with full cardiopulmonary monitoring by the watershed coordinator. Preoperative lidocaine hypopharyngeal anesthesia spray was applied. A bite block was placed. An Olympus video upper endoscope was passed in the hypopharynx. The vocal cords appeared normal. Scope was advanced to the esophagus throughout its length it was normal. Scope was passed to the stomach which was insufflated with air. There was no sign of bile or blood or other abnormality in the stomach. Rugal folds were normal. Pylorus was normal. Scope was passed through it into the duodenum, which was essentially normal, though there was some mild inflammatory appearance of the second and third portions, but no sign of ulcer or neoplasm. Biopsies were obtained to assess for celiac disease. The scope was withdrawn. A biopsy was then taken of the antrum for both SHANDA and pathologic testing. Retroflexed view was undertaken showing a perfectly normal flap valve. Scope was straightened, withdrawn and the mucosa of the esophagus was so normal the biopsies were deemed necessary. Further withdrawal showed no other abnormalities. Plans were then made for colonoscopy. Additional sedation was given. Digital rectal examination performed. An [employer] video colonoscope passed in the rectum and manipulated throughout the colon ultimately intubating the cecum itself. The ileocecal valve and appendiceal orifice appeared normal. Multiple attempts were made to enter to the ileocecal valve and it was never accomplished. Though briefly visualized showing no sign of blood or abnormality in the terminal ileum. The scope was withdrawn from that point and examination throughout showed no sign of abnormality into the sigmoid where a few scattered diverticula were noted. Retroflexed view of the rectum was normal. Scope was removed. The patient was taken to the recovery room in good condition. CONCLUDING DIAGNOSIS: No clear etiology for anemia and heme-positive stool. PLAN: Re-initiation of Plavix per Dr. Childs's recommendation would be appropriate as protection against stenting thrombosis. We will review with Dr. Childs more fully. We will await pathology reports particular as regard to celiac disease. Electronically Signed By: KADY SPENCER MD 09/22/24 1433 PATIENT NAME: GRISELDA AMARAL OPERATIVE REPORT DATE OF : 54 REPORT #: [id number] PHYSICIAN: KADY SPENCER MD PCP: ENEDELIA ROBERTS MD REPORT IS CONFIDENTIAL AND NOT TO BE RELEASED WITHOUT AUTHORIZATION [facility] [address] [place], [place] [address] Signed MD LATRICIA Alejandro/CORDELIA /[id number] cc: MD Dr. Naz Mcnair Copies: ~ Electronically Signed By: KADY SPENCER MD 09/22/24 1433 PATIENT NAME: GRISELDA AMARAL OPERATIVE REPORT DATE OF : 54 REPORT #: [id number] PHYSICIAN: KADY SPENCER MD PCP: ENEDELIA ROBERTS MD REPORT IS CONFIDENTIAL AND NOT TO BE RELEASED WITHOUT AUTHORIZATION
--- NOTE | 2024-09-24 10:07 | PATH ---
[facility] [address] [place], [place] [address] Signed SPECIMEN(S): A DUODENAL BIOPSY SPECIMEN(S): B ANTRUM BIOPSY SPECIMEN(S): C HEPATIC FLEXURE COLON BIOPSY SPECIMEN SOURCE: A. DUODENAL BIOPSY B. ANTRUM BIOPSY C. HEPATIC FLEXURE COLON BIOPSY CLINICAL HISTORY: Anemia, occult positive stool, mild duodenitis, diverticuli FINAL PATHOLOGIC DIAGNOSIS: A. Duodenum, biopsy: - Moderate predominantly chronic duodenitis with superficial erosions. - Negative for intraepithelial lymphocytosis, parasites or malignancy. B. Antrum, biopsies: - Fragments of superficial gastric mucosa with minimal reactive-type change. - Negative for Helicobacter pylori by HE. - Negative for intestinal metaplasia, dysplasia or malignancy. C. Hepatic flexure, biopsy: - Chronic active colitis. - Negative for granulomata, dysplasia or malignancy. DWS:clv MICROSCOPIC EXAMINATION: Histologic sections of all submitted blocks are examined by light microscopy. These findings, together with the gross examination, support the pathologic diagnosis. GROSS DESCRIPTION: A. The specimen, labeled and designated "Walker, duodenal biopsy," is received in formalin and consists of two reardon soft tissue fragments, ranging from 0.2-0.4 cm. Entirely submitted in (A1). B. The specimen, labeled and designated "Walker, antrum biopsy," is received in formalin and consists of two reardon soft tissue fragments, ranging from 0.3-0.4 cm. Entirely submitted in (B1). C. The specimen, labeled and designated "Walker, hepatic flexure colon biopsy," is received in formalin and consists of two reardon soft tissue fragments, ranging from 0.2-0.5 cm. Entirely submitted in (C1). PATIENT NAME: GRISELDA AMARAL PATHOLOGY DATE OF : 54 REPORT #: [id number] PHYSICIAN: [facility] PCP: ENEDELIA ROBERTS MD REPORT IS CONFIDENTIAL AND NOT TO BE RELEASED WITHOUT AUTHORIZATION [facility] [address] [place], [place] [address] Signed VB (under the direct supervision of a pathologist) The Gross Description was prepared using a voice recognition system. The report was reviewed for accuracy; however, sound-alike word errors, addition and/or deletions may occur. If there is any question about this report, please contact Client Services. PERFORMING LABORATORY: Technical component was performed by [facility] [address] [place] [id number] (CLIA# [id number]). Professional interpretation was performed by [facility], [address] [place] [id number] (CLIA#: [id number]). Diagnostician: Oliverio Faye MD Pathologist Electronically Signed 09/24/2024 Copies: ~ PATIENT NAME: GRISELDA AMARAL PATHOLOGY DATE OF : 54 REPORT #: [id number] PHYSICIAN: [facility] PCP: ENEDELIA ROBERTS MD REPORT IS CONFIDENTIAL AND NOT TO BE RELEASED WITHOUT AUTHORIZATION
== END 2024-09-20 16:30 | disposition home or self-care (01) | DRG 812 ==
LOC: ED 19:07 → CCU 19:08 → MS 09-19 20:55
PROVIDERS: Internal Medicine; Surgery; ADMIT Family Medicine; ATTEND Family Medicine
PROC: 0DBH8ZX Excision of Cecum, Via Natural or Artificial Opening Endoscopic, Diagnostic (ICD-10-PCS; 2024-09-20)
PROC: 0DBL8ZX Excision of Transverse Colon, Via Natural or Artificial Opening Endoscopic, Diagnostic (ICD-10-PCS; 2024-09-20)
PROC: 0DB98ZX Excision of Duodenum, Via Natural or Artificial Opening Endoscopic, Diagnostic (ICD-10-PCS; principal; 2024-09-20 13:27)
PROC: 30233N1 Transfusion of Nonautologous Red Blood Cells into Peripheral Vein, Percutaneous Approach (ICD-10-PCS; 2024-09-20 13:27)
DX: D64.9 Anemia, unspecified (principal); K52.9 Noninfective gastroenteritis and colitis, unspecified; K29.80 Duodenitis without bleeding; E11.9 Type 2 diabetes mellitus without complications; E83.42 Hypomagnesemia; K57.30 Diverticulosis of large intestine without perforation or abscess without bleeding; I25.10 Atherosclerotic heart disease of native coronary artery without angina pectoris; I10 Essential (primary) hypertension; E78.00 Pure hypercholesterolemia, unspecified; K63.89 Other specified diseases of intestine; Z88.8 Allergy status to other drugs, medicaments and biological substances; Z95.5 Presence of coronary angioplasty implant and graft; Z87.891 Personal history of nicotine dependence; Z98.890 Other specified postprocedural states; Z79.84 Long term (current) use of oral hypoglycemic drugs; Z79.02 Long term (current) use of antithrombotics/antiplatelets; Z79.899 Other long term (current) drug therapy; Z79.82 Long term (current) use of aspirin
CPT/HCPCS: 00813; 36415; 36430; 71045; 80053; 81001; 83550; 83735; 83880; 84100; 84443; 84484; 85025; 85379; 86850; 86900; 86901; 86922; 87088; 93005; 93010; 96374; 99285-25; G0378; J1200; J2003; J2470; J2704; J3010; J3475; J3490; J7121; P9016

== ENCOUNTER 2024-10-02 15:31 | Emergency (ER) | payer MEDICARE, OTHER ==
[~2024-10-02] VITALS: Ht 157.5 cm; Wt 89.0 kg
[~2024-10-02 15:31] MED LIST changes: +ATORVASTATIN CA80 MG PO; +CALCIUM + D3 E1 EACH PO; +CLOPIDOGREL75 MG PO; +JARDIANCE25 MG PO; +OMEPRAZOLE20 MG PO
[2024-10-02 16:57] LABS: BASOPHILS 0.8 % (0.1-1.2); EOSINOPHILS 4.5 % (0.7-5.8); HEMOGLOBIN 6.5 g/dL (11.2-15.7); LYMPHOCYTES 18.2 % (19.3-51.7); MCH 28.5 PG (25.6-32.2); MCV 92.1 fL (79.4-94.8); MONOCYTES 8.9 % (4.7-12.5); NEUTROPHILS 67.3 % (34.0-71.1); PLATELET COUNT 572 K/uL (182-369); RBC 2.28 M/uL (3.93-5.22)
[2024-10-02 17:02] LABS: INR 1.07 (0.80-1.30); PROTIME 13.3 Sec (11.2-14.2)
[2024-10-02 17:07] LABS: ALBUMIN/GLOBULIN RATIO 0.91 (1.1-2.4); BILIRUBIN, TOTAL 0.2 mg/dL (0.2-1.0); BUN/CREATININE RATIO 29.11 (6.0-28.6); CALCIUM 8.4 mg/dL (8.5-10.1); CREATININE, SERUM 0.79 mg/dL (0.55-1.02); PROTEIN, TOTAL 6.3 g/dL (6.4-8.2)
[2024-10-02 17:16] LABS: ABO O; ANTIBODY SCREEN NEGATIVE; RH POSITIVE
[2024-10-02 17:58] LABS: IS CROSSMATCH COMPATIBLE
[2024-10-02 22:38] VITALS: BP 152/67
== END 2024-10-02 22:38 | disposition home or self-care (01) ==
LOC: ED 15:31
PROVIDERS: Emergency Medicine
DX: D64.9 Anemia, unspecified (principal); I10 Essential (primary) hypertension; E11.9 Type 2 diabetes mellitus without complications; Z79.899 Other long term (current) drug therapy; Z88.8 Allergy status to other drugs, medicaments and biological substances; Z87.891 Personal history of nicotine dependence
CPT/HCPCS: 36415; 36430; 80053; 85025; 85610; 86850; 86900; 86901; 86922; 99284-25; P9016